=== PATIENT | male | born 1950 | race Caucasian/White ===

== ENCOUNTER → 2018-08-04 | Outpatient (REF) | payer MEDICARE ==
[2018-08-05 08:06] LABS: LDL DIRECT 70 mg/dL (0-99)
== END ==
LOC: M LAB REF 12:06
PROVIDERS: ATTEND Nurse Practitioner Adult Health
DX: R73.9 Hyperglycemia, unspecified (principal); E78.00 Pure hypercholesterolemia, unspecified

== ENCOUNTER → 2018-11-10 | Outpatient (REF) | payer MEDICARE ==
[2018-11-11 09:02] LABS: LDL DIRECT 97 mg/dL (0-99)
== END ==
LOC: M LAB REF 12:17
PROVIDERS: ATTEND Nurse Practitioner Adult Health
DX: E78.00 Pure hypercholesterolemia, unspecified (principal)

== ENCOUNTER 2021-12-07 07:45 | Emergency (ER) | payer MEDICARE ==
[~2021-12-07] VITALS: Ht 170.2 cm; Wt 77.3 kg
[2021-12-07 07:45] VITALS: BP 174/62
[2021-12-07] MEDS ORDERED: KETO10TAB PO (08:54)
[2021-12-07] MEDS ORDERED: KETOROLAC TROMETHAMINE 10 MG TAB PO ONE (08:55)
== END 2021-12-07 09:14 | disposition home or self-care (01) ==
LOC: M ED 07:45
DX: S20.212A Contusion of left front wall of thorax, initial encounter (principal); W01.198A Fall on same level from slipping, tripping and stumbling with subsequent striking against other object, initial encounter; Y92.002 Bathroom of unspecified non-institutional (private) residence as the place of occurrence of the external cause